=== PATIENT | male | born 1950 | race Caucasian/White ===

== ENCOUNTER 2023-11-29 12:14 | Outpatient (CLI) | payer MEDICARE, OTHER, SELFPAY ==
--- NOTE | ~2023-11-29 | XR_ITS ---
EXAMINATION: CT abdomen pelvis wo con, XR abdomen/kub 1V DATE: 11/29/2023 13:04 INDICATION: Nephrolithiasis TECHNIQUE: 1. Computed tomography (CT) of the abdomen and pelvis was performed without intravenous contrast. Aut omated exposure control and iterative reconstruction technique were employed. The dose-length product was 585.71 mGy-cm. 2. AP view of the abdomen and pelvis was obtained on 2 overlapping images. COMPARISON: None FINDINGS: CT: Respiratory motion and mild dependent atelectasis in the bilateral lower lobes. Heart size is normal. Atherosclerotic coronary artery calcific location. No pericardial or pleural effusion. Mild bilatera l gynecomastia. Moderate-sized sliding-type hiatal hernia. Liver, gallbladder, spleen, pancreas and b ilateral adrenal glands are normal. Right kidney and ureter are normal with no urolithiasis or hydron ephrosis. 3 nonobstructing 4-6 mm stones at the upper pole of the left kidney . No ureteral stones or hydronephrosis. 1.4 cm stone in the dependent bladder which is otherwise normal. Mild prostatomegaly measuring 5.2 x 3.7 cm. There is moderate scattered colonic diverticulosis without calcite appendico lith within the otherwise normal appendix with no periappendiceal inflammation presenting to suggest acute appendicitis. No bowel obstruction. No free intraperitoneal gas or fluid. No pathologically enl arged abdominal or pelvic lymphadenopathy. Adjacent inflammatory change to suggest diverticulitis. C hronic appearing mild anterior wedging at T8-T9 with prominent Schmorl's node along the superior endp late of T8. Moderate lower thoracic and mild lumbar spondylosis. KUB The bladder stone in the largest and most caudal stone at the upper pole the left kidney are clearly visible on the plain radiographs. The 2 more cephalad stones at the left kidney are difficult to dist inguish from the superimposed mild stool and gas in the overlying colon. IMPRESSION: 1. 3 nonobstructing 4-6 mm stones at the upper pole the left kidney and 1.4 cm bladder stone. 2. Diverticulosis. 3. Moderate sliding-type hiatal hernia. Reviewed, dictated and finalized at location A. IMPRESSION: 1. 3 nonobstructing 4-6 mm stones at the upper pole the left kidney and 1.4 cm bladder stone. 2. Diverticulosis. 3. Moderate sliding-type hiatal hernia.
== END 2023-11-29 12:15 | disposition home or self-care (01) ==
LOC: ANHIMG 12:22
PROVIDERS: PCP Internal Medicine Infectious Disease; Visit Provider Urology
DX: N20.0 Calculus of kidney (principal); K57.30 Diverticulosis of large intestine without perforation or abscess without bleeding; K44.9 Diaphragmatic hernia without obstruction or gangrene
CPT/HCPCS: 74018; 74176